=== PATIENT | female | born 1980 | race Caucasian/White ===

== ENCOUNTER 2024-08-12 13:25 | Day surgery (SDC) | payer BC ==
[2024-08-12] MEDS: diphenhydrAMINE HCL 50 MG CAPSULE PO PRN (13:54)
[2024-08-12] MEDS: IRON SUCROSE INJECTION 200 MG in SODIUM CHLORIDE 100 ML IVPB ONE (13:54)
[2024-08-12] MEDS: HYDROCORTISONE SOD SUCCINATE 100 MG/2 ML VIAL IVPB PRN (13:54)
[2024-08-12 15:11] VITALS: BP 123/76; PULSE 78; RESP 16; TEMP 98.2
== END 2024-08-12 15:11 | disposition home or self-care (01) ==
LOC: FINFUSION 13:25 → FM/S 13:29 → FINFUSION 15:11
PROVIDERS: ATTEND Internal Medicine
PROC: 3E033GC Introduction of Other Therapeutic Substance into Peripheral Vein, Percutaneous Approach (ICD-10-PCS; principal; 2024-08-12)
DX: D50.9 Iron deficiency anemia, unspecified (principal)
CPT/HCPCS: 96365; J1756